=== PATIENT | female | born 1990 | race Caucasian/White ===

== ENCOUNTER 2017-08-20 06:10 | Day surgery (SDC) | payer OTHER ==
[2017-08-18 09:36] LABS: BASOPHILS 0.2 % (0-2); EOSINOPHILS 2.9 % (0-7); HEMATOCRIT 38.5 % (36.0-48.0); HEMOGLOBIN 13.2 g/dL (12-16); LYMPHOCYTES 31.8 % (15-50); MCH 29.3 pg (26.0-34.0); MCHC 34.3 g/dL (31.0-37.0); MCV 85.4 fL (80.0-100.0); MEAN PLATELET VOLUME 9.4 fL (7.4-10.4); MONOCYTES 8.7 % (2-11); NEUTROPHILS 56.4 % (40-80); PLATELET COUNT 189 10x3/uL (130-400); RBC 4.51 10x6/uL (4.00-5.40); RDW 12.2 % (11.5-14.5); WBC 5.2 10x3/uL (4.8-10.8)
[~2017-08-20] VITALS: Ht 162.6 cm; Wt 93.0 kg
--- NOTE | ~2017-08-20 | OP ---
PATIENT NAME: NATHANIEL HAY MEDICAL RECORD: [id number] :89 [facility] DATE: SURGEON: NASIM MCCOY MD DATE OF OPERATION: 08/20/2017 PREOPERATIVE DIAGNOSIS: Menorrhagia. POSTOPERATIVE DIAGNOSIS: Menorrhagia. PROCEDURE: Hysteroscopy and NovaSure endometrial ablation. SURGEON: Nasim Mccoy MD ANESTHESIA: General. INTRAVENOUS FLUIDS: Per anesthesia record. HYSTEROSCOPIC FLUID LOSS: Less than 20 cc of 0.9 normal saline. SPECIMENS: None. COMPLICATIONS: None apparent. FINDINGS: Grossly normal external genitalia, grossly normal cervix and grossly normal-appearing endometrial canal. DESCRIPTION OF PROCEDURE: The patient was taken to the operating room where general anesthesia was achieved without difficulty. The patient was then prepped and draped in normal sterile fashion in the dorsal lithotomy position in the [facility]. At this point, a Graves speculum was placed into the vagina following a straight cath of approximately 100 cc of clear yellow urine. The cervix was then identified and grasped on its anterior lip with a single tooth tenaculum. The uterus was sounded and minimal dilation was performed for approximately 5-6 mm and the hysteroscope was introduced into the cervix. Survey of the endometrium was performed. The NovaSure device was then checked and calibrated, it was placed into the uterus without resistance and deployed. The vacuum pre-check times 2 was passed and the NovaSure device was deployed with a normal cycle achieved. Following the end of the NovaSure cycle, the device was unlocked and removed via the bow and arrow technique. No bleeding was noted from the cervical os at that time. Tenaculum was removed and the patient was transferred to postanesthesia recovery stable without incident. TRANSINT:[id number] Voice Confirmation ID: [id number] DOCUMENT ID: [id number] NASIM MCCOY MD at 1550 CC: [id number] DICTATION DATE: 09/05/17721 MILLING MACHINE OPERATOR: 09/05/17 0834 [facility] 08/20/17 [facility] [address] [place] [address]
[~2017-08-20 06:10] MED LIST: ACETAMINOPHEN325 MG NG; HYDROCODON-ACE1 EAC7 PO; IBUPROFEN600 MG PO; PRENATAL COMPLE1 TAB PO
[2017-08-20 07:24] VITALS: BP 108/72; Ht 162.6 cm; Wt 93.0 kg
[2017-08-20 07:46] LABS: HCG URINE NEGATIVE (NEGATIVE)
== END 2017-08-20 13:07 | disposition home or self-care (01) ==
LOC: D.OPS 06:10 → D.PAN 07:30 → D.OPS 07:30 → D.PAN 07:50 → D.OPS 07:50 → D.PAN 08:15 → D.OPS 08:15
PROVIDERS: Obstetrics & Gynecology
DX: N92.0 Excessive and frequent menstruation with regular cycle (principal); E28.2 Polycystic ovarian syndrome; Z01.812 Encounter for preprocedural laboratory examination; Z88.0 Allergy status to penicillin